=== PATIENT | female | born 1960 | race Caucasian/White ===

== ENCOUNTER 2016-05-14 11:44 | Emergency (ER) | payer OTHER ==
[2016-05-14 11:49] VITALS: TEMP 97.3; BMI 25.5
--- NOTE | 2016-05-14 14:09 | PDOC ---
History of Present Illness <Ibrahima Ocampo - Last Filed: 05/14/16 18:11> - General History Source: Patient Exam Limitations: No Limitations - History of Present Illness Initial Comments: 05/14/16 14:33 The patient is a 55-year-old woman with a significant past medical history of hypertension, subarachnoid cerebrovascular accident, gatsroesophageal reflux disease who presents to the emergency department for further evaluation of abdominal pain for the past month. No fall, strenuous activity. She states that for the past month she has been experiencing intermittent diffuse abdominal pain with with associated nausea. Patient was asymptomatic yesterday and had a stew that contains different types of meat last night. This morning, she woke up lightheaded and had several episodes of emesis. She expresses concern of her gastric lap band (placed 3 years ago). She has an appointment with her Surgeon, Dr. Ant Juárez tomorrow at approximately 13:00. She denies fever, chills, diaphoresis, generalized weakness. She denies chest pain, shortness of breath, cough She denies diarrhea, dysuria, hematuria, urinary frequency and urgency, flank pain, vaginal discharge/vaginal bleeding Allergies: Phenytoin Sodium. Past Surgical History: Lap band. Right knee arthrtoscopy. Radio wave therapy for heel spur. Social History: No tobacco, ETOH and recreational drug use. Primary Care Physician: Dr. Dick Bee [phone] <Yue Santos - Last Filed: 05/14/16 21:29> - General Chief Complaint: Nausea/Vomiting Stated Complaint: NAUSEA, ABD PAIN, VOMITING Time Seen by Provider: 05/14/16 14:07 Past History - Past Medical History Anemia: No Asthma: No Cancer: No Cardiac Disorders: No CVA: Yes (SUBARACHNOID CVA) COPD: No CHF: No Dementia: No Diabetes: No GI Disorders: Yes (GERD, STOMACH BAND) Disorders: No HTN: Yes (NO MEDS) Hypercholesterolemia: No Liver Disease: No Seizures: Yes Thyroid Disease: No - Surgical History Abdominal Surgery: Yes (lap band,band slipage) Appendectomy: No Cardiac Surgery: No Cholecystectomy: No Lung Surgery: No Neurologic Surgery: No Orthopedic Surgery: (KNEE RIGHT [id number] THERAPY FOR HEEL SPUR) - Immunization History Immunization Up to Date: Yes - Psycho/Social/Smoking Cessation Hx Anxiety: No Suicidal Ideation: No Smoking Status: No Smoking History: Never smoked Have you smoked in the past 12 months: No Number of Cigarettes Smoked Daily: 0 Hx Alcohol Use: No Drug/Substance Use Hx: No Substance Use Type: None Hx Substance Use Treatment: No <Ibrahima Ocampo - Last Filed: 05/14/16 18:11> <Yue Santos - Last Filed: 05/14/16 21:29> - Past Medical History Allergies/Adverse Reactions: Allergies Allergy/AdvReac Type Severity Reaction Status Date / Time phenytoin sodium Allergy Severe Rash Verified 05/14/16 11:49 [From Dilantin] phenytoin sodium extended Allergy Verified 05/14/16 11:49 [From Dilantin] Home Medications: Ambulatory Orders Ondansetron [Ondansetron Odt] 8 mg PO TID PRN #30 tab.rapdis 05/14/16 Pantoprazole Sodium [Protonix -] 20 mg PO DAILY 05/14/16 Review of Systems - Review of Systems Able to Perform ROS?: Yes Comments:: 05/14/16 14:33 GENERAL/CONSTITUTIONAL: No fever or chills. No weakness. HEAD, EYES, EARS, NOSE AND THROAT: No change in vision. No ear pain or discharge. No sore throat. CARDIOVASCULAR: No chest pain or shortness of breath. RESPIRATORY: No cough, wheezing, or hemoptysis. GASTROINTESTINAL: Yes: Abdominal Pain. Nausea. Vomiting. No diarrhea or constipation. GENITOURINARY: No dysuria, frequency, or change in urination. MUSCULOSKELETAL: No joint or muscle swelling or pain. No neck or back pain. SKIN: No rash NEUROLOGIC: Yes: Lightheadedness. No headache, vertigo, loss of consciousness, or change in strength/sensation. ENDOCRINE: No increased thirst. No abnormal weight change. HEMATOLOGIC/LYMPHATIC: No anemia, easy bleeding, or history of blood clots. ALLERGIC/IMMUNOLOGIC: No hives or skin allergy. <Yue Santos - Last Filed: 05/14/16 21:29> *Physical Exam - Vital Signs Last Vital Signs Temp Pulse Resp BP Pulse Ox 97.3 F L 94 H 20 112/52 99 05/14/16 11:46 05/14/16 11:46 05/14/16 11:46 05/14/16 11:46 05/14/16 11:46 <Ibrahima Ocampo - Last Filed: 05/14/16 18:11> - Vital Signs Last Vital Signs Temp Pulse Resp BP Pulse Ox 97.3 F L 94 H 20 112/52 99 05/14/16 11:46 05/14/16 11:46 05/14/16 11:46 05/14/16 11:46 05/14/16 11:46 - Physical Exam Comments: 05/14/16 14:33 GENERAL: Awake, alert, and fully oriented, in no acute distress HEAD: No signs of trauma EYES: PERRLA, EOMI, sclera anicteric, conjunctiva clear ENT: Auricles normal inspection, hearing grossly normal, nares patent, oropharynx clear without exudates. Dry mucosa NECK: Normal ROM, supple, no lymphadenopathy, JVD, or masses LUNGS: Breath sounds equal, clear to auscultation bilaterally. No wheezes, and no crackles HEART: Regular rate and rhythm, normal S1 and S2, no murmurs, rubs or gallops ABDOMEN: Soft, nontender, normoactive bowel sounds. No guarding, no rebound. No masses EXTREMITIES: Normal range of motion, no edema. No clubbing or cyanosis. No cords, erythema, or tenderness NEUROLOGICAL: Cranial nerves II through XII grossly intact. Normal speech. <Yue Santos - Last Filed: 05/14/16 21:29> ED Treatment Course - LABORATORY CBC & Chemistry Diagram: 05/14/16 14:50 05/14/16 14:50 <Ibrahima Ocampo - Last Filed: 05/14/16 18:11> - LABORATORY CBC & Chemistry Diagram: 05/14/16 14:50 05/14/16 14:50 <Yue Santos - Last Filed: 05/14/16 21:29> Medical Decision Making - Medical Decision Making 05/14/16 15:53 Recieved a call from the lab. Potassium of 2.3 05/14/16 15:[address] Juárez. Case discussed. Requests that a Barium Swallow test to be performed. 05/14/16 16:00 Dr. Juárez in the ED. Evaluated the patient at bedside. Patient can follow up as outpatient tomorrow in his office. <Yue Santos - Last Filed: 05/14/16 21:29> *DC/Admit/Observation/Transfer - Discharge Dispostion Admit: No - Attestations Physician Attestion: 05/14/16 14:08 I, Dr. Ibrahima Ocampo, attest that this document has been prepared under my direction and personally reviewed by me in its entirety. I further attest, that it accurately reflects all work, treatment, procedures and medical decision -making performed by me. <Ibrahima Ocampo - Last Filed: 05/14/16 18:11> - Attestations Scribe Attestion: 05/14/16 14:34 Documentation prepared by Yue Santos, acting as medical billing service for Ibrahima Ocampo DO. <Yue Santos - Last Filed: 05/14/16 21:29> Diagnosis at time of Disposition: Gastric band slippage, Hypokalemia due to loss of potassium - Discharge Dispostion Disposition: HOME - Prescriptions Prescriptions: Ondansetron [Ondansetron Odt] 8 mg PO TID PRN #30 tab.rapdis PRN Reason: Nausea - Referrals Referrals: Dick Bee MD [Primary Care Provider] - - Patient Instructions Printed Discharge Instructions: DI for Laparoscopic Adjustable Gastric Band ( LapBand) Additional Instructions: RIGO- Sorry that your Band slipped. I Sent a prescription for Zofran for Nausea to your pharmacy. Return to us if any problems. Follow up with your surgeon by phone. Best- Dr Ibrahima Ocampo
[2016-05-14] MEDS ORDERED: METOCLOPRAMIDE HCL INJECTION 10 MG/2 ML VIAL IVPUSH ONE (14:46)
[2016-05-14] MEDS ORDERED: ONDANSETRON 4 MG/2 ML VIAL IVPB ONE (14:46)
[2016-05-14] MEDS ORDERED: SODIUM CHLORIDE 1,000 ML IV STA ×3 (14:46→16:05)
[2016-05-14] MEDS ORDERED: METOCLOPRAMIDE HCL INJECTION 10 MG/2 ML VIAL ONE (14:59)
[2016-05-14] MEDS ORDERED: ONDANSETRON 4 MG/2 ML VIAL ONE (14:59)
[2016-05-14 15:04] LABS: URINE APPEARANCE SLCLOUDY; URINE BLOOD NEGATIVE (NEGATIVE); URINE COLOR AMBER; URINE GLUCOSE (UA) NEGATIVE (NEGATIVE); URINE KETONE NEGATIVE (NEGATIVE); URINE NITRITE NEGATIVE (NEGATIVE); URINE UROBILINOGEN 2.0 E.U/dl E.U./dl (0.2-1.0)
[2016-05-14 15:05] LABS: BASOPHIL 0.8 % (0-2.0); EOSINOPHIL 1.8 % (0-4.5); MCH 27.5 pg (25.7-33.7); MCHC 34.2 g/dl (32.0-36.0); MEAN CELL VOLUME 80.4 fl (80-96); MEAN PLT VOLUME 9.3 fl (7.5-11.1); NEUTROPHILS 67.4 % (42.8-82.8); PLATELET COUNT 254 K/MM3 (134-434); RDW 13.6 % (11.6-15.6); URINE LEUK ESTERASE 3+ (NEGATIVE); URINE PROTEIN 2+ (NEGATIVE)
[2016-05-14 15:08] LABS: URINE HYALINE CAST 27 /lpf; URINE MUCUS FEW; URINE RBC 5 /hpf (0-3); URINE WBC 44 /hpf (3-5)
[2016-05-14 15:34] LABS: ALBUMIN 4.1 g/dl (3.4-5.0); CALCIUM 9.2 mg/dL (8.5-10.1); CREATININE 1.4 mg/dL (0.55-1.02); TOT PROT 8.7 g/dl (6.4-8.2)
[2016-05-14] MEDS ORDERED: POTASSIUM CHLORIDE TABS 20 MEQ TABLET.ER (FP) PO ONE ×3 (16:00→16:25)
--- NOTE | 2016-05-14 16:40 | CONSULT ---
Consult - text type - Consultation Consultation Note: Pt with lap-band for 4 years Recent vomiting for 2-3 days BP_112/52 P-94 Pt with no pain feels weak UGI Barium- Band in mal-position Barium collects in stomach on side of band In X-ray, all fluid removed Decreased stomach over the band Barium still not passed thru, but pt feels relief WBC-11.0 H/H-14/41 Na-134 K+-2.3 Cl- 80 CO2-41 BUN-29 GLU-135 Cr-1.4 I- Slipped Gastric Band Vomiting Rec- IV fluid hydration K+ correction PO liquids/soft for 4-5 days, then advance as tolerated Pt to call Dr Juárez office tomorrow 05/15/16 to report and update medical staff Pt to return to Dr Juárez for F/U UGI in 2 weeks, but if symptoms return pt. to call immediately
[2016-05-14 19:15] VITALS: BP 120/62; PULSE 85
== END 2016-05-14 19:16 | disposition home or self-care (01) ==
LOC: JER 11:44
PROC: 3E033GC Introduction of Other Therapeutic Substance into Peripheral Vein, Percutaneous Approach (ICD-10-PCS; principal; 2016-05-14)
PROC: 3E0337Z Introduction of Electrolytic and Water Balance Substance into Peripheral Vein, Percutaneous Approach (ICD-10-PCS; 2016-05-14)
DX: Y83.2 Surgical operation with anastomosis, bypass or graft as the cause of abnormal reaction of the patient, or of later complication, without mention of misadventure at the time of the procedure (principal); Y73.1 Therapeutic (nonsurgical) and rehabilitative gastroenterology and urology devices associated with adverse incidents; Y92.9 Unspecified place or not applicable; E87.6 Hypokalemia; I10 Essential (primary) hypertension; Z86.73 Personal history of transient ischemic attack (TIA), and cerebral infarction without residual deficits; K21.9 Gastro-esophageal reflux disease without esophagitis; Z98.84 Bariatric surgery status
CPT/HCPCS: 36415; 74240-TC; 80053; 81003; 81015; 83690; 84703; 85025; 99284-25

== ENCOUNTER 2016-10-26 14:24 | Emergency (ER) | payer OTHER ==
[2016-10-26 14:32] VITALS: BP 152/97; PULSE 78; TEMP 98.1; BMI 33.0
--- NOTE | 2016-10-26 16:18 | PDOC ---
History of Present Illness - History of Present Illness Initial Comments: 10/26/16 16:28 The patient is a 56-year-old woman with a significant past medical history of hypertension, subarachnoid cerebrovascular accident, gastroesophageal reflux disease who presents to the emergency department for right sided chest pain for 4 days. She states she was visiting her mother in a long-term when she bent down to move her mother and developed a sharp pain to the center of her chest with associated shortness of breath. She states that since the incident she has been taking naproxen and aleve, as well as used Bengay which offered little to no relief. She also states she has gained 55lbs s/p removal of gastric band in September. She states her Last seizure was September 2016 resulting in her lap band slipping. She denies fever, chills, diaphoresis, cough and generalized weakness. She denies dizziness, shortness of breath, cough. She denies constipation, diarrhea, dysuria, hematuria, urinary frequency and urgency. Allergies: Phenytoin Sodium. Past Surgical History: Lap band (3 years ago). Right knee arthroscopy. Radio wave therapy for heel spur. Social History: No tobacco, ETOH and recreational drug use. Primary Care Physician: Dr. Dick Bee [phone] <Shanel Ellis - Last Filed: 10/26/16 17:10> <Karissa Perez - Last Filed: 10/26/16 17:31> - General Chief Complaint: Pain, Acute Stated Complaint: CHEST PAIN Time Seen by Provider: 10/26/16 15:10 Past History <Shanel Ellis - Last Filed: 10/26/16 17:10> - Past Medical History Anemia: No Asthma: No Cancer: No Cardiac Disorders: No CVA: Yes (SUBARACHNOID CVA) COPD: No CHF: No Dementia: No Diabetes: No GI Disorders: Yes (GERD, STOMACH BAND) Disorders: No HTN: Yes (NO MEDS) Hypercholesterolemia: No Liver Disease: No Seizures: Yes Thyroid Disease: No - Surgical History Abdominal Surgery: Yes (lap band,band slipage) Appendectomy: No Cardiac Surgery: No Cholecystectomy: No Lung Surgery: No Neurologic Surgery: No Orthopedic Surgery: (KNEE RIGHT [id number] THERAPY FOR HEEL SPUR) - Immunization History Immunization Up to Date: Yes - Psycho/Social/Smoking Cessation Hx Anxiety: No Suicidal Ideation: No Smoking Status: No Smoking History: Never smoked Have you smoked in the past 12 months: No Number of Cigarettes Smoked Daily: 0 Hx Alcohol Use: Yes Drug/Substance Use Hx: No Substance Use Type: Alcohol Hx Substance Use Treatment: No <Karissa Perez - Last Filed: 10/26/16 17:31> - Past Medical History Allergies/Adverse Reactions: Allergies Allergy/AdvReac Type Severity Reaction Status Date / Time phenytoin sodium Allergy Severe Rash Verified 10/26/16 14:25 [From Dilantin] phenytoin sodium extended Allergy Verified 10/26/16 14:25 [From Dilantin] *Physical Exam - Vital Signs Last Vital Signs Temp Pulse Resp BP Pulse Ox 98.1 F 78 18 152/97 100 10/26/16 14:24 10/26/16 14:24 10/26/16 14:24 10/26/16 14:24 10/26/16 14:24 <Shanel Ellis - Last Filed: 10/26/16 17:10> - Vital Signs Last Vital Signs Temp Pulse Resp BP Pulse Ox 98.1 F 78 18 152/97 100 10/26/16 14:24 10/26/16 14:24 10/26/16 14:24 10/26/16 14:24 10/26/16 14:24 <Karissa Perez - Last Filed: 10/26/16 17:31> Heart Score/ECG Review - ECG Intrepretation Comment:: 10/26/16 16:29 EKG was read by Dr. Perez at 14:41 Impression: Normal sinus rhythm Vent Rate: 77 bpm AZ interval 162 ms <Shaenl Ellis - Last Filed: 10/26/16 17:10> ED Treatment Course - LABORATORY CBC & Chemistry Diagram: 10/26/16 16:32 10/26/16 16:40 <Shanel Ellis - Last Filed: 10/26/16 17:10> - LABORATORY CBC & Chemistry Diagram: 10/26/16 16:32 10/26/16 16:40 <Karissa Perez - Last Filed: 10/26/16 17:31> *DC/Admit/Observation/Transfer <Shanel Ellis - Last Filed: 10/26/16 17:10> - Discharge Dispostion Admit: No <Karissa Perez - Last Filed: 10/26/16 17:31> Diagnosis at time of Disposition: Atypical chest pain - Discharge Dispostion Disposition: HOME Condition at time of disposition: Stable - Patient Instructions Printed Discharge Instructions: DI for Atypical Chest Pain
[2016-10-26] MEDS ORDERED: KETOROLAC TROMETHAMINE 30 MG/1 ML VIAL IVPUSH ONE (16:51)
[2016-10-26 16:54] LABS: BASOPHIL 1.9 % (0-2.0); EOSINOPHIL 5.9 % (0-4.5); MCH 27.2 pg (25.7-33.7); MCHC 32.6 g/dl (32.0-36.0); MEAN CELL VOLUME 83.4 fl (80-96); MEAN PLT VOLUME 8.1 fl (7.5-11.1); NEUTROPHILS 57.6 % (42.8-82.8); PLATELET COUNT 249 K/MM3 (134-434); WHITE BLOOD COUNT 6.5 K/mm3 (4.0-10.8)
[2016-10-26 17:09] LABS: ALBUMIN 3.8 g/dl (3.5-5.0); ALK PHOS 88 U/L (32-92); ANION GAP 4 (8-16); BILIRUBIN,TOTAL 0.4 mg/dl (0.2-1.0); CO2 27 mmol/L (22-28); CREATININE 0.7 mg/dl (0.6-1.3); GLUCOSE,RANDOM 91 mg/dl (74-106); SGOT/AST 21 U/L (10-42); SGPT/ALT 18 U/L (10-40); TOT PROT 7.4 g/dl (6.4-8.3)
[2016-10-26 17:10] LABS: CPK 90 IU/L (26-192)
[2016-10-26] MEDS ORDERED: KETOROLAC TROMETHAMINE 30 MG/1 ML VIAL ONE (17:12)
[2016-10-26 17:20] LABS: TROPONIN I (DFP) < 0.03 ng/ml (0.03-0.50)
--- NOTE | 2016-10-27 08:49 | EKG ---
Test Reason : Blood Pressure : / mmHG Vent. Rate : 077 BPM Atrial Rate : 077 BPM P-R Int : 162 ms QRS Dur : 092 ms QT Int : 388 ms P-R-T Axes : 052 -21 020 degrees QTc Int : 439 ms SINUS RHYTHM MINIMAL VOLTAGE CRITERIA FOR LVH, MAY BE NORMAL VARIANT POSSIBLE LEFT ATRIAL ENLARGEMENT BORDERLINE ECG WHEN COMPARED WITH ECG OF 09-OCT-2001 09:00, NO SIGNIFICANT CHANGE WAS FOUND Confirmed by ENRIQUE BROWN, DAT ([id number] on 10/27/2016 8:48:51 AM Referred By: MALA Confirmed By:DAT NUNEZ MD
== END 2016-10-26 18:03 | disposition home or self-care (01) ==
LOC: FER 14:24
PROC: 3E0333Z Introduction of Anti-inflammatory into Peripheral Vein, Percutaneous Approach (ICD-10-PCS; principal; 2016-10-26)
DX: R07.89 Other chest pain (principal); Z98.84 Bariatric surgery status; I10 Essential (primary) hypertension; Z86.73 Personal history of transient ischemic attack (TIA), and cerebral infarction without residual deficits; K21.9 Gastro-esophageal reflux disease without esophagitis
CPT/HCPCS: 36415; 71020-TC; 80053; 84484; 85025; 93005; 99282-25

== ENCOUNTER 2017-01-13 17:27 | Emergency (ER) | payer OTHER ==
[2017-01-13 17:48] VITALS: BP 154/98; PULSE 103; TEMP 97.7; BMI 32.8
--- NOTE | 2017-01-13 17:48 | PDOC ---
Rapid Medical Evaluation Chief Complaint: Sore Throat Time Seen by Provider: 01/13/17 17:43 Medical Evaluation: Allergies Allergy/AdvReac Type Severity Reaction Status Date / Time phenytoin sodium Allergy Severe Rash Verified 01/13/17 17:42 [From Dilantin] phenytoin sodium extended Allergy Verified 01/13/17 17:42 [From Dilantin] 01/13/17 17:44 I have performed a brief in-person evaluation of this patient. The patient presents with a chief complaint of: Cough x 3 weeks. Took some left over amoxicillin at home that she took for 9 days, last dose 2 days ago. H/o GERD, HTN, SAH, menopausal Pertinent physical exam findings:Stable w/ clear chest/lungs I have ordered the following: CXR The patient will proceed to the ED for further evaluation. 01/13/17 17:49
--- NOTE | 2017-01-13 18:31 | PDOC ---
History of Present Illness - General Chief Complaint: Shortness of Breath Stated Complaint: SORE THROAT Time Seen by Provider: 01/13/17 17:43 Past History - Past Medical History Allergies/Adverse Reactions: Allergies Allergy/AdvReac Type Severity Reaction Status Date / Time phenytoin sodium Allergy Severe Rash Verified 01/13/17 17:42 [From Dilantin] phenytoin sodium extended Allergy Verified 01/13/17 17:42 [From Dilantin] Home Medications: Ambulatory Orders Oxycodone HCl/Acetaminophen [Percocet 5/325 -] 1 tab PO Q6H #16 tablet MDD 4 Azithromycin [Zithromax 250mg Tablets -] 250 mg PO UTDICT #6 tab 01/13/17 Guaifenesin AC [Robitussin AC -] 5 ml PO Q6H PRN #60 ml MDD 20 mL 01/13/17 Anemia: No Asthma: No Cancer: No Cardiac Disorders: No CVA: Yes (SUBARACHNOID CVA) COPD: No CHF: No DVT: No Dementia: No Diabetes: No GI Disorders: Yes (GERD, STOMACH BAND and removed) Disorders: No HTN: Yes (NO MEDS) Hypercholesterolemia: No Liver Disease: No Seizures: Yes Thyroid Disease: No - Surgical History Abdominal Surgery: Yes (lap band,band slipage, removed) Appendectomy: No Cardiac Surgery: No Cholecystectomy: No Lung Surgery: No Neurologic Surgery: No Orthopedic Surgery: (KNEE RIGHT [id number] THERAPY FOR HEEL SPUR) - Immunization History Immunization Up to Date: Yes - Suicide/Smoking/Psychosocial Hx Smoking Status: No Smoking History: Never smoked Have you smoked in the past 12 months: No Number of Cigarettes Smoked Daily: 0 Hx Alcohol Use: Yes Drug/Substance Use Hx: No Substance Use Type: Alcohol Hx Substance Use Treatment: No *Physical Exam - Vital Signs Last Vital Signs Temp Pulse Resp BP Pulse Ox 97.7 F 103 H 18 154/98 100 01/13/17 17:43 01/13/17 17:43 01/13/17 17:43 01/13/17 17:43 01/13/17 17:43 *DC/Admit/Observation/Transfer Diagnosis at time of Disposition: Pharyngitis Qualifiers: Pharyngitis/tonsillitis etiology: other specified organisms Qualified Code(s): J02.8 - Acute pharyngitis due to other specified organisms - Discharge Dispostion Disposition: HOME Condition at time of disposition: Stable Admit: No - Prescriptions Prescriptions: Azithromycin [Zithromax 250mg Tablets -] 250 mg PO UTDICT #6 tab Guaifenesin AC [Robitussin AC -] 5 ml PO Q6H PRN #60 ml MDD 20 mL PRN Reason: Cough - Referrals - Patient Instructions Printed Discharge Instructions: DI for Pharyngitis/Tonsillopharyngitis -- Adult - Post Discharge Activity
[2017-01-13] MEDS ORDERED: DEXAMETHASONE SOD PHOSPHATE 10 MG/1 ML VIAL IVPUSH ONE (18:39)
[2017-01-13 18:47] LABS: URINE APPEARANCE CLEAR; URINE BILIRUBIN NEGATIVE (NEGATIVE); URINE BLOOD NEGATIVE (NEGATIVE); URINE COLOR YELLOW; URINE GLUCOSE (UA) NEGATIVE (NEGATIVE); URINE KETONE NEGATIVE (NEGATIVE); URINE NITRITE NEGATIVE (NEGATIVE); URINE PROTEIN NEGATIVE (NEGATIVE); URINE UROBILINOGEN NEGATIVE mg/dL (0.2-1.0)
[2017-01-13] MEDS ORDERED: DEXAMETHASONE SOD PHOSPHATE 10 MG/1 ML VIAL ONE (18:52)
[2017-01-13] MEDS ORDERED: ALBUTEROL SO4 0.083% IH SOL 2.5 MG/3 ML VIAL.NEB. NEB ONE ×2 (18:59→19:03)
[2017-01-13 22:39] LABS: URINE LEUK ESTERASE TRACE (NEGATIVE)
[2017-01-13 23:14] LABS: URINE BACTERIA FEW /hpf (NEGATIVE); URINE RBC 0-2 /hpf (0-3); YEAST FEW
== END 2017-01-13 19:34 | disposition home or self-care (01) ==
LOC: JER 17:27
PROC: 3E0F7GC Introduction of Other Therapeutic Substance into Respiratory Tract, Via Natural or Artificial Opening (ICD-10-PCS; principal; 2017-01-13)
PROC: 3E033GC Introduction of Other Therapeutic Substance into Peripheral Vein, Percutaneous Approach (ICD-10-PCS; 2017-01-13)
DX: J02.8 Acute pharyngitis due to other specified organisms (principal)
CPT/HCPCS: 71020-TC; 81003; 81015; 99283-25

== ENCOUNTER 2021-10-27 09:41 | Emergency (ER) | payer OTHER ==
[2021-10-27 09:44] VITALS: BP 144/80; PULSE 80; RESP 18; TEMP 98; BMI 32.8
[2021-10-27] MEDS ORDERED: ACETAMINOPHEN 325 MG TABLET (FP) PO ONE (11:56)
[2021-10-27] MEDS ORDERED: AMPICILLIN NA/SULBACTAM NA 3 GM in SODIUM CHLORIDE 100 ML IVPB ONE (11:56)
[2021-10-27] MEDS ORDERED: ACETAMINOPHEN 325 MG TABLET (FP) ONE (12:24)
[2021-10-27 13:08] LABS: BASO % 0.4 % (0-2.0); EOS % 2.2 % (0-4.5); HEMATOCRIT 38.3 % (32.4-45.2); HEMOGLOBIN 12.7 GM/dL (10.7-15.3); LYMPH % 25.7 % (8-40); MCH 27.6 pg (25.7-33.7); MCHC 33.1 g/dl (32.0-36.0); MEAN CELL VOLUME 83.5 fl (80-96); MEAN PLT VOLUME 7.6 fl (7.5-11.1); MONO % 5.7 % (3.8-10.2); PLATELET COUNT 288 10^3/uL (134-434); RBC 4.59 M/mm3 (3.60-5.2); RDW 13.3 % (11.6-15.6); WHITE BLOOD COUNT 9.7 K/mm3 (4.0-10.0)
[2021-10-27] MEDS ORDERED: IBUPROFEN 400 MG TABLET (FP) PO ONE (13:33)
[2021-10-27] MEDS ORDERED: RABIES IMMUNE GLOBULIN 300 UNITS/1 ML VIAL IM ONE (13:36)
[2021-10-27] MEDS ORDERED: RABIES VACCINE (PCEC)/PF 2.5 UNIT/VIAL IM ONE ×2 (13:36→15:46)
[2021-10-27 14:05] LABS: ALBUMIN 3.4 g/dl (3.4-5.0); BILIRUBIN,TOTAL 0.6 mg/dL (0.2-1); CALCIUM 8.8 mg/dL (8.5-10.1); CREATININE 0.7 mg/dL (0.55-1.3); TOT PROT 7.6 g/dl (6.4-8.2)
== END 2021-10-27 18:42 | disposition home or self-care (01) ==
LOC: JER 09:41
PROC: 3E0234Z Introduction of Serum, Toxoid and Vaccine into Muscle, Percutaneous Approach (ICD-10-PCS; principal; 2021-10-27)
DX: S63.630A Sprain of interphalangeal joint of right index finger, initial encounter (principal); W55.01XA Bitten by cat, initial encounter; Z29.14 Encounter for prophylactic rabies immune globulin
CPT/HCPCS: 36415; 73130-TC-RT-FY; 80053; 85025; 90375; 90675; 99284-25

== ENCOUNTER 2021-10-30 11:18 | Emergency (ER) | payer OTHER ==
[2021-10-30 12:03] VITALS: BP 178/96; PULSE 75; RESP 18; TEMP 97.4; BMI 34.2
[2021-10-30] MEDS ORDERED: RABIES VACCINE (PCEC)/PF 2.5 UNIT/VIAL IM ONE ×2 (12:49→15:43)
[2021-10-30] MEDS ORDERED: VANCOMYCIN 1 GM in D5W (PRE-DOCKED) 1,000 MG/250 ML IVPB ONE (12:56)
[2021-10-30] MEDS ORDERED: PIPERACILLIN/TAZOB 3.375 GM 3.375 GM in DEXTROSE 5%-WATER - 50 ML IVPB ONE (12:56)
[2021-10-30] MEDS ORDERED: PIPERACILLIN/TAZOB 3.375 GM 3.375 GM/50 ML BAG IVPB ONE (15:26)
[2021-10-30 16:34] LABS: BASO % 0.3 % (0-2.0); EOS % 2.7 % (0-4.5); HEMATOCRIT 40.1 % (32.4-45.2); HEMOGLOBIN 13.6 GM/dL (10.7-15.3); LYMPH % 26.3 % (8-40); MCH 28.5 pg (25.7-33.7); MCHC 33.9 g/dl (32.0-36.0); MEAN CELL VOLUME 84.1 fl (80-96); MEAN PLT VOLUME 7.7 fl (7.5-11.1); MONO % 5.4 % (3.8-10.2); NEUT % 65.3 % (42.8-82.8); PLATELET COUNT 330 10^3/uL (134-434); RBC 4.76 M/mm3 (3.60-5.2); RDW 13.5 % (11.6-15.6); WHITE BLOOD COUNT 9.4 K/mm3 (4.0-10.0)
[2021-10-30 16:47] LABS: BLOOD UREA NITROGEN 16.2 mg/dL (7-18); CALCIUM 9.3 mg/dL (8.5-10.1)
[2021-10-30 16:48] LABS: ALBUMIN 3.9 g/dl (3.4-5.0)
[2021-10-30 16:51] LABS: CREATININE 0.7 mg/dL (0.55-1.3)
[2021-10-30 16:52] LABS: BILIRUBIN,TOTAL 0.3 mg/dL (0.2-1); TOT PROT 8.5 g/dl (6.4-8.2)
[2021-10-30] MEDS ORDERED: VANCOMYCIN/WATER FOR INJ (PEG) 1,000 MG/200 ML BAG IVPB ONE (17:49)
== END 2021-10-30 19:44 | disposition left against medical advice (07) ==
LOC: JER 11:18
PROC: 3E033GC Introduction of Other Therapeutic Substance into Peripheral Vein, Percutaneous Approach (ICD-10-PCS; principal; 2021-10-30)
PROC: 3E023GC Introduction of Other Therapeutic Substance into Muscle, Percutaneous Approach (ICD-10-PCS; principal; 2021-10-30)
DX: S81.852A Open bite, left lower leg, initial encounter (principal); W55.01XA Bitten by cat, initial encounter
CPT/HCPCS: 0241U-QW; 36415; 80053; 85025; 87040; 90675; 93971-TC; 99284-25

== ENCOUNTER 2023-04-29 17:34 | Emergency (ER) | payer OTHER ==
[2023-04-29 17:52] VITALS: BMI 31.9
[2023-04-29] MEDS ORDERED: ACETAMINOPHEN 325 MG TABLET (FP) ONE (19:17)
[2023-04-29] MEDS: ACETAMINOPHEN 325 MG TABLET (FP) PO ONE (19:21)
[2023-04-29 19:23] LABS: EOS % 2.9 % (0-4.5); HEMATOCRIT 34.6 % (32.4-45.2); HEMOGLOBIN 10.9 GM/dL (10.7-15.3); LYMPH % 42.9 % (8-40); MCH 23.2 pg (25.7-33.7); MCHC 31.4 g/dl (32.0-36.0); MEAN CELL VOLUME 73.9 fl (80-96); MEAN PLT VOLUME 7.7 fl (7.5-11.1); MONO % 6.2 % (3.8-10.2); PLATELET COUNT 372 10^3/uL (134-434); RBC 4.68 M/mm3 (3.60-5.2); RDW 16.5 % (11.6-15.6); WHITE BLOOD COUNT 8.5 K/mm3 (4.0-10.0)
[2023-04-29 19:31] LABS: INR 1.14 (0.83-1.09); PROTHROMBIN TIME (PATIENT) 13.2 SEC (9.7-13.0)
[2023-04-29 19:33] LABS: ACTIVATED PTT 30.6 SECONDS (25.2-36.5)
[2023-04-29 19:40] LABS: EPI CELLS 7 /uL (0-25.1); HYALINE CASTS 0 /uL (0-3.1); URINE APPEARANCE CLEAR; URINE BACTERIA 13 /uL (0-1359); URINE BILIRUBIN NEGATIVE (NEGATIVE); URINE COLOR YELLOW; URINE GLUCOSE (UA) NEGATIVE (NEGATIVE); URINE KETONE NEGATIVE (NEGATIVE); URINE LEUK ESTERASE TRACE (NEGATIVE); URINE NITRITE NEGATIVE (NEGATIVE); URINE PROTEIN NEGATIVE (NEGATIVE); URINE RBC 8 /uL (0-23.9); URINE UROBILINOGEN 0.2 mg/dL (0.2-1.0); URINE WBC 29 /uL (0-25.8)
[2023-04-29 19:56] LABS: POTASSIUM 3.7 mmol/L (3.5-5.1)
[2023-04-29 19:58] LABS: ALBUMIN 3.7 g/dl (3.4-5.0); BLOOD UREA NITROGEN 16.1 mg/dL (7-18); CALCIUM 9.5 mg/dL (8.5-10.1)
[2023-04-29 20:02] LABS: CREATININE 0.8 mg/dL (0.55-1.3)
[2023-04-29 20:03] LABS: BILIRUBIN,TOTAL 0.3 mg/dL (0.2-1); TOT PROT 8.4 g/dl (6.4-8.2)
[2023-04-29 23:14] VITALS: BP 110/78; PULSE 78; RESP 19; TEMP 97.9
== END 2023-04-29 23:14 | disposition home or self-care (01) ==
LOC: JER 17:34
DX: M79.672 Pain in left foot (principal); R07.81 Pleurodynia; M54.9 Dorsalgia, unspecified
CPT/HCPCS: 36415; 71046-TC-FY; 71275-TC; 73630-TC-LT; 80053; 81003; 83605; 83735; 84484; 85025; 85610; 85730; 87086; 93005; 93010; 93970-TC; 99285-25; Q9967

== ENCOUNTER 2024-06-04 13:44 | Emergency (ER) | payer OTHER ==
[2024-06-04 13:53] VITALS: BP 132/75; PULSE 69; RESP 16; TEMP 98; BMI 36.9
== END 2024-06-04 15:34 | disposition home or self-care (01) ==
LOC: JER 13:44
DX: K64.4 Residual hemorrhoidal skin tags (principal)
CPT/HCPCS: 99283-25